=== PATIENT | male | born 1935 | race Caucasian/White ===

== ENCOUNTER 2022-02-23 13:25 | Outpatient (CLI) | payer MEDICARE, SELFPAY | END 2022-02-23 13:26 | disposition home or self-care (01) | PROVIDERS: PCP Family Medicine; Visit Provider Specialist | DX: C44.729 Squamous cell carcinoma of skin of left lower limb, including hip (principal) | CPT/HCPCS: 88305 ==

== ENCOUNTER 2022-12-14 15:09 | Outpatient (CLI) | payer MEDICARE, SELFPAY | END 2022-12-14 15:10 | disposition home or self-care (01) | LOC: CHSLAB 15:19 | PROVIDERS: PCP Family Medicine; Visit Provider Specialist | DX: C44.622 Squamous cell carcinoma of skin of right upper limb, including shoulder (principal); L57.0 Actinic keratosis; L72.0 Epidermal cyst; L57.8 Other skin changes due to chronic exposure to nonionizing radiation | CPT/HCPCS: 88304; 88305 ==